=== PATIENT | female | born 1955 | race Caucasian/White ===

== ENCOUNTER → 2019-01-18 | Outpatient (CLI) | payer MEDICARE, OTHER ==
[~2019-01-18] MED LIST: AMBIEN 5MG TABLE5 MG PO; ATIVAN1 MG PO; BENICAR; BENICAR HCT 12.1 TAB PO; HCTZ; IBUPROFEN 200200 MG PO; PRILOSEC 20MG20 MG PO
== END ==
LOC: COL.VAS 12:30
DX: I35.1 Nonrheumatic aortic (valve) insufficiency (principal)

== ENCOUNTER 2021-04-17 22:35 | Emergency (ER) | payer MEDICARE ==
[~2021-04-17] VITALS: Ht 175.3 cm; Wt 64.5 kg
[2021-04-17 22:46] VITALS: TEMP 98.2
[2021-04-18 00:26] VITALS: BP 132/70; PULSE 77
== END 2021-04-18 00:26 | disposition home or self-care (01) ==
LOC: COL.ER 22:35
DX: S06.0X0A Concussion without loss of consciousness, initial encounter (principal); S00.83XA Contusion of other part of head, initial encounter; S00.33XA Contusion of nose, initial encounter; S00.531A Contusion of lip, initial encounter; S80.01XA Contusion of right knee, initial encounter; I10 Essential (primary) hypertension; W01.198A Fall on same level from slipping, tripping and stumbling with subsequent striking against other object, initial encounter; Y92.009 Unspecified place in unspecified non-institutional (private) residence as the place of occurrence of the external cause

== ENCOUNTER → 2023-02-16 | Outpatient (CLI) | payer MEDICARE | LOC: COL.RAD 10:19 | DX: M24.152 Other articular cartilage disorders, left hip (principal) | CPT/HCPCS: J3301; Q9967 ==

== ENCOUNTER → 2024-03-22 | Outpatient (CLI) | payer MEDICARE | LOC: COL.RAD 10:00 | DX: E04.2 Nontoxic multinodular goiter (principal) ==